=== PATIENT | female | born 1930 | race Caucasian/White ===

== ENCOUNTER 2017-11-11 16:05 | Emergency (ER) | payer MEDICAID ==
[~2017-11-11] VITALS: Ht 139.7 cm; Wt 61.2 kg
[2017-11-11 17:14] VITALS: BP 168/75
--- NOTE | 2017-11-11 17:31 | NUR ---
PT MOVED TO BED 11.
--- NOTE | 2017-11-11 17:32 | NUR ---
87/F bib family with complaints of UTI s/sx x1 week with pelvic pain. Pt c/o dysuria, frequency, and pain to pelvic area. Hx HTN. AOX4, polish speaking. VSS.
--- NOTE | 2017-11-11 19:13 | NUR ---
Pt report given to Juan/Chiara PEDROZA. Transfer of care at this time.
[2017-11-11] MEDS ORDERED: PHENAZOPYRIDINE 100 MG TAB PO ONE (19:20)
[2017-11-11] MEDS ORDERED: LIDOCAINE 2% 1000 MG/50 ML VIAL INJ ONE (19:20)
--- NOTE | 2017-11-11 19:20 | NUR ---
LIDOCAINE PULLED AND PLACED AT BEDSIDE FOR ER MD DR BARBOSA TO ADMINISTER
[2017-11-11 19:25] LABS: APPEARANCE,URINE CLEAR (CLEAR); BILIRUBIN,URINE NEGATIVE (NEGATIVE); BLOOD, URINE 2+ (NEGATIVE); COLOR,URINE YELLOW (YELLOW); LEUKOCYTE ESTERASE ,URINE NEGATIVE (NEGATIVE); NITRITE, URINE NEGATIVE (NEGATIVE); PH,URINE 6.5 (5.0-9.0); UGLUCOSE NEGATIVE (NEGATIVE)
[2017-11-11 19:33] LABS: RBC,URINE 3-10 (FEW) /HPF (0-5)
[2017-11-11 19:34] LABS: WBC,URINE 0-5 (RARE) /HPF (0-5)
[2017-11-11 21:24] VITALS: BP 150/70
--- NOTE | 2017-11-11 21:27 | NUR ---
Patient discharged with v/s stable. Written and verbal after care instructions given and explained. Patient alert, oriented and verbalized understanding of instructions. Ambulatory with steady gait. All questions addressed prior to discharge. ID band removed. Patient advised to follow up with PMD. Rx of CIPRO, PHENAZOPYRIDINE given. Patient educated on indication of medication including possible reaction and side effects. Opportunity to ask questions provided and answered.
== END 2017-11-11 21:27 | disposition home or self-care (01) ==
LOC: MED 16:05
DX: T16.2XXA Foreign body in left ear, initial encounter (principal); N39.0 Urinary tract infection, site not specified; I10 Essential (primary) hypertension; X58.XXXA Exposure to other specified factors, initial encounter; Y93.89 Activity, other specified; Y92.89 Other specified places as the place of occurrence of the external cause; Y99.8 Other external cause status
CPT/HCPCS: 69200; 81001; 99284; J2001